=== PATIENT | female | born 1970 | race African-American/Black ===

== ENCOUNTER 2017-12-29 06:48 | Day surgery (SDC) | payer OTHER ==
[2017-12-14 15:36] VITALS: BMI 29.8
[2017-12-29] MEDS ORDERED: GENTAMICIN SO4 80 MG/2 ML VIAL ONE (11:09)
[2017-12-29] MEDS ORDERED: ceFAZolin SODIUM 1 GM VIAL ONE (11:09)
[2017-12-29] MEDS ORDERED: ACETAMINOPHEN INJECTION 100 ML IVPB ONE (11:24)
[2017-12-29] MEDS ORDERED: DEXAMETHASONE SOD PHOSPHATE 4 MG/1 ML VIAL ONE (11:28)
[2017-12-29] MEDS ORDERED: ONDANSETRON 4 MG/2 ML VIAL ONE (11:28)
[2017-12-29] MEDS ORDERED: MIDAZOLAM HCL 2 MG/2 ML SINGLE DOSE VIAL ONE (11:29)
[2017-12-29] MEDS ORDERED: SUCCINYLCHOLINE CHLORIDE 200 MG/10 ML VIAL ONE (11:29)
[2017-12-29] MEDS ORDERED: PROPOFOL 20 ML ONE ×4 (11:29→14:17)
[2017-12-29] MEDS ORDERED: ROCURONIUM BROMIDE 50 MG/5 ML VIAL ONE (11:31)
[2017-12-29] MEDS ORDERED: ePHEDrine SULFATE 50 MG/1 ML AMPULE ONE (13:28)
[2017-12-29] MEDS ORDERED: SEVOFLURANE 250 ML BTL ONE (14:27)
[2017-12-29] MEDS ORDERED: NEOSTIGMINE METHYLSULFATE 0.5 MG/ML - 10 ML MDV ONE (14:32)
[2017-12-29] MEDS ORDERED: oxyCODONE HCL 5 MG TABLET PO PRN ×3 (15:58→16:16)
[2017-12-29] MEDS ORDERED: PROMETHAZINE HCL 25 MG/1 ML VIAL IVPUSH PRN (15:58)
[2017-12-29] MEDS ORDERED: LACTATED RINGERS SOLUTION 1,000 ML IV SCH ×2 (16:00→16:30)
[2017-12-29] MEDS ORDERED: ONDANSETRON 4 MG/2 ML VIAL IVPB PRN (16:16)
--- NOTE | 2017-12-29 16:20 | OP ---
Operative Note - Note: Operative Date: 12/29/17 Pre-Operative Diagnosis: bilateral capsular contracture Operation: bilateral capsulectomy with mastopexy and implant exchange Post-Operative Diagnosis: Same as Pre-op Surgeon: Igor Godinez Anesthesia: General
[2017-12-29] MEDS ORDERED: oxyCODONE HCL 5 MG TABLET ONE (17:29)
[2017-12-29 17:44] VITALS: TEMP 98
[2017-12-29 17:46] VITALS: PULSE 85
[2017-12-29 18:35] VITALS: BP 110/65
--- NOTE | 2017-12-30 06:45 | OP ---
DATE OF OPERATION: 12/29/2017 PROCEDURE: Bilateral capsulectomy with implant exchange, mastopexy. ATTENDING SURGEON: Igor Godinez MD SECURITY SPECIALIST: No assistants. ANESTHESIA: General endotracheal anesthesia. Patient is marked in the holding area. Nipples are sited at 25 cm from the sternal notch bilaterally. A vertical mastopexy pattern is planned. Patient is awake, aware of all incisions and resulting scars. Risks, benefits and alternatives are thoroughly discussed, understood and agreed to proceed. The patient is then brought to the operating room, placed in the supine position. Position is carefully checked by surgical and anesthesia teams. All pressure points are carefully padded. She is then prepped and draped in standard surgical fashion. A timeout is called. Patient, procedure, sites and sides are verified. The right side is addressed first. An incision within the planned mastopexy pattern is made and dissection carried down to the level of the periprosthetic capsule. The capsule is in a subglandular position. Capsulotomy is performed. The implant is removed. It is a 350-mL smooth round saline implant. Capsulotomies are then performed medially and superiorly to allow for correction of capsular contracture. A lateral capsulectomy is then performed to accommodate for a smaller size implant without implant mobility. The capsulectomy is a 2-cm elliptical excision of capsule laterally which is repaired with a series of interrupted [id number] 2-0 PDS sutures. A Natrelle SSF 295-mL high-profile silicone gel implant is then brought on to the field. It is irrigated with triple-antibiotic solution. Standard triple-antibiotic solution is used. A biofilm is created over the implant with the triple-antibiotic solution. Using a El funnel and a no-touch technique it is placed into the pocket and the skin is tailor tacked. The attention is then directed to the contralateral side where an identical procedure is performed. Patient is then brought to an seated upright position where the preoperative markings for the mastopexy are revised to center the nipple areolas over the central aspect of the implants. A vertical mastopexy pattern is prepared. A superior pedicle is developed. The nipple areola is traced at its border of the nipple areola and the pedicle is deepithelialized with the exception of the nipple areola. This translocated into the keyhole pattern. After the keyhole pattern is closed a vertical ellipse of skin and tissue is assessed. At the 6 o'clock position an excision of skin and gland is then performed leaving medial and lateral pillars. The capsule is closed with a running locking 2-0 Vicryl suture. The pillars are closed with a series of interrupted buried 2-0 Vicryl suture. The vertical skin is closed with a series of interrupted buried deep dermal 3-0 Monocryl suture followed by a running subcuticular 3-0 Monocryl suture and the nipple areola is inset with a series of interrupted buried deep dermal 3-0 Monocryl suture followed by a running subcuticular 4-0 Monocryl suture and several 5-0 nylons for skin alignment. The left breast is addressed in the identical fashion. Mastopexy is performed in a similar fashion. Patient is brought to the seated upright position several times during the case to assess symmetry of implant position, size, nipple position. All are excellent at the end of the procedure. Patient's incisions are dressed with Steri-Strips. All tissues are pink and viable without compromise. A surgical bra is applied. She is awoken from anesthesia, transferred to recovery without complication. Chelo [id number]
--- NOTE | 2018-01-03 16:08 | PATH ---
Surgical Pathology Report Patient Name: ROCHELLE REESE [facility]. Rec. #: [id number] /Age/Gender: 1970 (Age: 47) / F Account: [id number] Location: [facility] Taken: 12/29/2017 Received: 12/29/2017 Reported: 01/03/2018 Physicians: Igor Godinez Specimen(s) Received A: RIGHT BREAST IMPLANT B: LEFT BREAST IMPLANT C: LEFT BREAST CAPSULE D: RIGHT BREAST CAPSULE E: LEFT BREAST SKIN AND TISSUE F: RIGHT BREAST SKIN AND TISSUE Clinical History Bilateral capsular contracture Final Diagnosis A. IMPLANT, RIGHT BREAST, REMOVAL: IMPLANT, DESCRIBED (GROSS EXAMINATION ONLY). B. IMPLANT, LEFT BREAST, REMOVAL: IMPLANT, DESCRIBED (GROSS EXAMINATION ONLY). C. CAPSULE, LEFT BREAST, CAPSULECTOMY: FIBROUS CAPSULE AND BENIGN BREAST TISSUE. D. CAPSULE, RIGHT BREAST, CAPSULECTOMY: FIBROUS CAPSULE AND BENIGN BREAST TISSUE. E. SKIN AND BREAST TISSUE, LEFT, EXCISION: BENIGN BREAST TISSUE. SKIN WITH NO PATHOLOGIC FINDINGS. F. SKIN AND BREAST TISSUE, RIGHT, EXCISION: BENIGN BREAST TISSUE. SKIN WITH NO PATHOLOGIC FINDINGS. Electronically Signed Cris Ghotra M.D. Gross Description A. Received fresh labeled "right breast implant," is a 12.5 cm in diameter x 4 cm in depth clear, rubbery, intact breast implant. No soft tissue is present. No sections are submitted, gross only. B. Received fresh labeled "left breast implant," is a 12.5 cm in diameter x 4 cm in depth clear, rubbery, intact breast implant. No soft tissue is present. No sections are submitted, gross only. C. Received in formalin labeled "left breast capsule," is a 3.8 x 1.7 x 0.4 cm portion of vinson fibrous tissue with attached fat, consistent with a fibrous capsule.. Head Banquet Waiter/Waitress sections are submitted in one cassette. D. Received in formalin labeled "right breast capsule," is a 6.4 x 2.0 x 0.4 cm aggregate of multiple portions of vinson fibrous tissue with attached fat, consistent with a breast capsule. Head Banquet Waiter/Waitress sections are submitted in one cassette. E. Received in formalin labeled "left breast skin and tissue," is a 39 g, 6.5 x 4.5 x 3.0 cm unoriented portion of fibroadipose tissue which is surfaced by a 6.4 x 3.2 cm brown, elliptical portion of skin. The epidermal surface displays a linear defect containing metallic paula. Sectioning reveals foci of white fibrous tissue. Head Banquet Waiter/Waitress sections are submitted in one cassette. F. Received in formalin labeled "right breast skin and tissue," is a 27 g, 5.5 x 4.5 x 2.6 cm unoriented portion of fibroadipose tissue which is surfaced by a 5.5 x 2.9 cm brown, elliptical portion of skin. The epidermal surface displays a linear defect containing metallic paula. Sectioning reveals foci of white fibrous tissue. Head Banquet Waiter/Waitress sections are submitted in one cassette. 01/02/2018 [facility]/02/2018
== END 2017-12-29 18:45 | disposition home or self-care (01) ==
LOC: FASU 06:48
PROVIDERS: ATTEND Plastic Surgery
PROC: 0HQV0ZZ Repair Bilateral Breast, Open Approach (ICD-10-PCS; 2017-12-29)
PROC: 0HWU0JZ Revision of Synthetic Substitute in Left Breast, Open Approach (ICD-10-PCS; principal; 2017-12-29 12:21)
PROC: 0HWT0JZ Revision of Synthetic Substitute in Right Breast, Open Approach (ICD-10-PCS; 2017-12-29 12:21)
DX: T85.44XA Capsular contracture of breast implant, initial encounter (principal); Y82.8 Other medical devices associated with adverse incidents; Y92.9 Unspecified place or not applicable; Y83.9 Surgical procedure, unspecified as the cause of abnormal reaction of the patient, or of later complication, without mention of misadventure at the time of the procedure
CPT/HCPCS: 84703; 88300-TC; 88304-TC; 94760; J0131